=== PATIENT | male | born 1995 | race Caucasian/White ===

== ENCOUNTER 2018-03-23 10:32 | Emergency (ER) | payer BC, OTHER ==
[~2018-03-23] VITALS: Ht 190.5 cm; Wt 90.7 kg
[2018-03-23 10:38] VITALS: BP 165/74
[2018-03-23] MEDS ORDERED: THIA100T8 PO (11:00)
--- NOTE | 2018-03-23 11:00 | PHYS DOC ---
Past Medical History Past Medical History: No Pertinent History Past Surgical History: No Surgical History Smoking: Cigarettes Adult General Chief Complaint Chief Complaint: OTHER COMPLAINTS [facility] Patient is a 22 year old male who presents with complaining of numbness of bilateral groin and genital area since December after he felt a pop in right groin area during exercise. Patient complaining of constant numbness of genital area and problem with feeling of desire for urinating. Patient states he was seen by his primary care physician and had negative STD and gentle ultrasound and referred to urology and has appointment in April but cannot wait until April because he had problem with erection and ejaculation during masturbation. Patient states he does masturbation frequently for long time and does not get a good erection or ejaculation. Patient denies abdominal pain, nausea and vomiting, fever and chills. Review of Systems Review of Systems Constitutional: Denies fever or chills [] Eyes: Denies change in visual acuity, redness, or eye pain [] HENT: Denies nasal congestion or sore throat [] Respiratory: Denies cough or shortness of breath [] Cardiovascular: No additional information not addressed in HPI [] GI: Denies abdominal pain, nausea, vomiting, bloody stools or diarrhea [] : Denies dysuria or hematuria [] Musculoskeletal: Denies back pain or joint pain [] Integument: Denies rash or skin lesions [] Neurologic: Denies headache, focal weakness or sensory changes [] Endocrine: Denies polyuria or polydipsia [] All other systems were reviewed and found to be within normal limits, except as documented in this note. Allergies Allergies Allergies Coded Allergies Type Severity Reaction Last Updated Verified Penicillins Allergy Intermediate rash 03/23/18 Yes Physical Exam Physical Exam Constitutional: Well developed, well nourished, mild distress, non-toxic appearance. [] HENT: Normocephalic, atraumatic, bilateral external ears normal, oropharynx moist, no oral exudates, nose normal. [] Eyes: PERRLA, EOMI, conjunctiva normal, no discharge. [] Neck: Normal range of motion, no tenderness, supple, no stridor. [] Cardiovascular:Heart rate regular rhythm, no murmur [] Lungs & Thorax: Bilateral breath sounds clear to auscultation [] Abdomen: Bowel sounds normal, soft, no tenderness, no masses, no pulsatile masses. 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 Skin: Warm, dry, no erythema, no rash. [] Back: No tenderness, no CVA tenderness. [] Extremities: No tenderness, no cyanosis, no clubbing, ROM intact, no edema. [] Neurologic: Alert and oriented X 3, normal motor function, normal sensory function, no focal deficits noted. [] Psychologic: Affect anxious, judgement normal, mood normal. [] Current Patient Data Vital Signs Vital Signs Date Time Temp Pulse Resp B/P (MAP) Pulse Ox O2 Delivery O2 Flow Rate FiO2 03/23/18 10:38 98.1 95 16 165/74 (104) 99 Room Air 98.1 EKG EKG [] Radiology/Procedures Radiology/Procedures [] Course & Med Decision Making Course & Med Decision Making Evaluation of patient in ER showed 22-year-old male patient with complaining of paresthesia in inguinal and genital area for several months. Patient seen by his primary care physician and had negative STD, UA and ultrasound and referred to on urologist with an scheduled appointment in April but states he cannot wait until April. Patient has frequent masturbation and instructed to avoid of masturbation, increase physical activity and follow up with his primary care physician and urologist. Dragon Disclaimer Dragon Disclaimer This electronic medical record was generated, in whole or in part, using a voice recognition dictation system. Departure Departure Impression: Primary Impression: Erectile disorder, generalized, mild Additional Impressions: Paresthesia Anxiety about health Masturbation Disposition: HOME, SELF-CARE (at 1056) Condition: STABLE Patient Instructions: Paresthesia Additional Instructions: Follow-up with your urologist appointment Avoid of masturbation Drink plenty of liquids Follow-up with your primary care physician in 3-5 days Return to ER if not getting better Scripts Thiamine Hcl (THIAMINE HCL) 100 Mg Tablet 100 MG PO DAILY, #30 TAB Prov: SHEILA GARCIA MD 03/23/18 Problem Qualifiers SHEILA GARCIA MD Mar 23, 2018 11:00
== END 2018-03-23 11:02 | disposition home or self-care (01) ==
LOC: ER 10:32
DX: R20.2 Paresthesia of skin (principal); F41.9 Anxiety disorder, unspecified; N52.8 Other male erectile dysfunction; F98.8 Other specified behavioral and emotional disorders with onset usually occurring in childhood and adolescence; F17.210 Nicotine dependence, cigarettes, uncomplicated; Z88.0 Allergy status to penicillin
CPT/HCPCS: 99282